=== PATIENT | female | born 1970 | race Caucasian/White ===

== ENCOUNTER 2017-09-28 03:36 | Emergency (ER) | payer BC ==
[~2017-09-28] VITALS: Ht 152.4 cm; Wt 72.6 kg
[2017-09-28] MEDS ORDERED: LEVSOD50 PO (03:44)
[2017-09-28] MEDS ORDERED: CEPH500 PO (07:29)
[2017-09-28] MEDS ORDERED: Norco 5-325 Ta1 EACH PO (07:29)
== END 2017-09-28 07:58 | disposition home or self-care (01) ==
LOC: ER 03:36
DX: S61.011A Laceration without foreign body of right thumb without damage to nail, initial encounter (principal); Z79.899 Other long term (current) drug therapy; Z23 Encounter for immunization; W45.8XXA Other foreign body or object entering through skin, initial encounter
CPT/HCPCS: 90714